=== PATIENT | female | born 1970 | race Caucasian/White ===

== ENCOUNTER 2017-04-21 14:39 | Observation (INO) | payer OTHER ==
[~2017-04-21] VITALS: Ht 167.6 cm; Wt 32.6 kg
[2017-04-21] MEDS ORDERED: GI COCKTAIL PO STA (15:07)
[2017-04-21] MEDS ORDERED: RANITIDINE HCL 50 MG/100 ML D5W IV STA (15:07)
[2017-04-21] MEDS ORDERED: ONDA4TAB46 PO (15:12)
[2017-04-21] MEDS ORDERED: DIAZ-165 PO (15:12)
[2017-04-21] MEDS ORDERED: CMP5 PO (15:12)
[2017-04-21] MEDS ORDERED: PANT40TA PO (15:12)
[2017-04-21] MEDS ORDERED: LEVO25TA5 PO (15:12)
[2017-04-21 15:24] LABS: BASO % 0.2 %; BASO ABS # 0.02 K/uL (0-0.2); EOS % 1.7 %; EOS ABS # 0.14 K/uL (0-0.5); HEMATOCRIT 38.6 % (37-47); HEMOGLOBIN 13.2 g/dL (12.0-16.0); IG# 0.01 K/uL (0.00-0.02); LYMPH % 37.2 %; MEAN CORPUSCULAR HEMOGLOBIN 29.1 pg (25-34); MEAN CORPUSCULAR HGB CONC 34.2 g/dl (32-36); MEAN PLATELET VOLUME 10.6 fL (7.4-10.4); MONO % 6.1 %; MONO ABS # 0.51 K/uL (0.11-0.59); NEUT % 54.7 %; NEUT ABS # 4.56 K/uL (1.4-6.5); PLATELET COUNT 233 K/uL (130-400); RED CELL DISTRIBUTION WIDTH CV 15.9 % (11.5-14.5); RED CELL DISTRIBUTION WIDTH SD 49.6 fL (36.4-46.3); WHITE BLOOD COUNT 8.34 K/uL (4.8-10.8)
--- NOTE | 2017-04-21 15:25 | EMERGENCY ROOM VISIT NOTE ---
History First contact with patient: 14:55 Chief Complaint: CHEST PAIN Stated Complaint: CHEST PAIN Nursing Triage Summary: Has hiatal hernia that causes reflux. Pt ran out of medicine. Has unbearable chset pain. Unable to sleep or eat. History of Present Illness The patient is a 46 year old female who presents to the Emergency Room via private vehicle with complaints of "chest pain". The patient states that she has a history of hiatal hernia that seems to cause acid reflux. She states that since being without this medication the burning in the chest began which she has been dealing with for about 2 weeks now. It has worsened over the past 3-4 days. She notes a sharp pain that is also radiating into her throat and is now affecting her voice and radiates to her back. She has had decreased eating , sleeping, toleration of fluid and food secondary to the sensation. She feels as though her anxiety is increased and she also feels slightly short of breath. There is also nausea but she has been taking Zofran for there has been no vomiting, abdominal pain or diaphoresis. Review of Systems A complete 10-point Review of Systems was discussed with the patient, with pertinent positives and negatives listed in the History of Present Illness. All remaining Review of Systems questions can be considered negative unless otherwise specified. Past Medical/Surgical History Medical Problems: (1) Chest pain Acid Reflux Family History No pertinent. Social History Smoking Status: Never Smoker Current/Historical Medications Scheduled Diazepam (Valium), Unknown Dose PO UD Levothyroxine Sodium (Levothyroxine Sodium), 25 MG PO DAILY Pantoprazole (Protonix), 40 MG PO DAILY Scheduled PRN Ondansetron Hcl (Zofran), 4 MG PO UD PRN for Nausea Prochlorperazine Maleate (Prochlorperazine Maleate), 5 MG PO UD PRN for Nausea Physical Exam Vital Signs Date Time Temp Pulse Resp B/P (MAP) Pulse Ox O2 Delivery O2 Flow Rate FiO2 04/21/17 20:17 76 18 113/86 96 04/21/17 17:57 63 16 116/77 93 Room Air 04/21/17 17:26 64 16 116/80 96 Room Air 04/21/17 15:34 68 20 112/80 04/21/17 15:12 73 04/21/17 15:05 96 Room Air 04/21/17 14:45 36.8 70 17 119/75 96 Room Air Physical Exam VITAL SIGNS - Vital signs and nursing notes were reviewed. Stable. GENERAL - 46-year-old female appearing her stated age who is in no acute distress. Communicates well with provider and answers questions appropriately. SKIN - Without rashes. No petechial rashes. HEAD - NC/AT. EYES - PERRL with EOMI bilaterally. Sclera anicteric. EARS - No deformities of external structures noted on gross examination bilaterally. NOSE - Midline and without cyanosis. No epistaxis or purulent drainage noted. MOUTH/OROPHARYNX - Without perioral cyanosis. Posterior pharynx unremarkable. NECK - Neck with FROM. Supple to palpation. LUNGS - Chest wall symmetric without accessory muscle use, intercostals retractions, or central cyanosis. Normal vesicular breath sounds CTA B/L. No wheezes, rales, or rhonchi appreciated. CARDIAC - RRR with S1/S2. No murmur, rubs, or gallops appreciated. EXTREMITIES - No clubbing or peripheral cyanosis NEUROLOGIC - Cranial nerves II through XII grossly intact PSYCH - A&O, and cooperates fully with examiner. Pt is very pleasant but does appear sad and interacts well with examiner. Medical Decision & Procedures ER Provider Diagnostic Interpretation: CHEST ONE VIEW PORTABLE CLINICAL HISTORY: Chest pain. COMPARISON STUDY: No previous studies for comparison. FINDINGS: Lung volumes are mildly diminished. There is no pneumothorax or pleural effusion. No evidence for pulmonary edema. There is no consolidation. Cardiac size is at the upper limits of normal. Mediastinal contours are unremarkable. IMPRESSION: No acute cardiopulmonary findings. Electronically signed by: Mickey Ch M.D. 04/21/2017 3:30 PM Dictated Date/Time: 04/21/2017 3:29 PM Laboratory Results 04/21/17 15:05 Test 04/21/17 15:05 RDW Standard Deviation 49.6 fL (36.4-46.3) RDW Coefficient of Variation 15.9 % (11.5-14.5) White Blood Count 8.34 K/uL (4.8-10.8) Red Blood Count 4.54 M/uL (4.2-5.4) Hemoglobin 13.2 g/dL (12.0-16.0) Hematocrit 38.6 % (37-47) Mean Corpuscular Volume 85.0 fL (80-100) Mean Corpuscular Hemoglobin 29.1 pg (25-34) Mean Corpuscular Hemoglobin Concent 34.2 g/dl (32-36) Platelet Count 233 K/uL (130-400) Mean Platelet Volume 10.6 fL (7.4-10.4) Neutrophils (%) (Auto) 54.7 % Lymphocytes (%) (Auto) 37.2 % Monocytes (%) (Auto) 6.1 % Eosinophils (%) (Auto) 1.7 % Basophils (%) (Auto) 0.2 % Neutrophils # (Auto) 4.56 K/uL (1.4-6.5) Lymphocytes # (Auto) 3.10 K/uL (1.2-3.4) Monocytes # (Auto) 0.51 K/uL (0.11-0.59) Eosinophils # (Auto) 0.14 K/uL (0-0.5) Basophils # (Auto) 0.02 K/uL (0-0.2) Immature Granulocyte % (Auto) 0.1 % Immature Granulocyte # (Auto) 0.01 K/uL (0.00-0.02) D-Dimer 450 ug/L FEU (0-500) Anion Gap 8.0 mmol/L (3-11) Est Creatinine Clear Calc Drug Dose 75.7 ml/min Estimated GFR () 93.2 Estimated GFR (Non- 80.4 BUN/Creatinine Ratio 13.0 (10-20) Calcium Level 9.3 mg/dl (8.5-10.1) Magnesium Level 2.1 mg/dl (1.8-2.4) Total Bilirubin 0.3 mg/dl (0.2-1) Aspartate Amino Transf (AST/SGOT) 12 U/L (15-37) Alanine Aminotransferase (ALT/SGPT) 17 U/L (12-78) Alkaline Phosphatase 55 U/L (45-117) Total Protein 7.6 gm/dl (6.4-8.2) Albumin 4.1 gm/dl (3.4-5.0) Globulin 3.5 gm/dl (2.5-4.0) Albumin/Globulin Ratio 1.2 (0.9-2) Lipase 168 U/L (73-393) Thyroid Stimulating Hormone (TSH) 1.600 uIu/ml (0.300-4.500) Medications Administered Medications (Trade) Dose Ordered Sig/Lamine Route Start Time Stop Time Status Last Admin Dose Admin Miscellaneous Medication (Gi Cocktail) 24 ml NOW STAT PO 04/21/17 15:07 04/21/17 15:11 DC 04/21/17 15:07 24 ML Ranitidine HCl (zANTac IV) 50 mg NOW STAT IV 04/21/17 15:07 04/21/17 15:11 DC 04/21/17 15:07 50 MG Morphine Sulfate (MoRPHine SULFATE INJ) 4 mg NOW STAT IV 04/21/17 16:04 04/21/17 16:05 DC 04/21/17 16:23 4 MG Ondansetron HCl (Zofran Inj) 4 mg NOW STAT IV 04/21/17 16:04 04/21/17 16:05 DC 04/21/17 16:23 4 MG Hydromorphone HCl (Dilaudid Inj) 0.5 mg NOW STAT IV 04/21/17 17:36 04/21/17 17:37 DC 04/21/17 17:50 0.5 MG Acetaminophen (Tylenol Tab) 650 mg Q4H PRN PO 04/21/17 20:15 05/21/17 20:14 04/22/17 00:32 650 MG Medical Decision Patient was seen and evaluated as above. She presents to us today with chest pain. She appears to be uncomfortable on exam. She is also at times slightly tearful and does appear to be sad. After obtaining a thorough history and physical examination the above work up was performed. Bedside EKG reveals normal sinus rhythm, rate of 63 bpm per my interpretation. Lead II and III do have pre-QRS abnormalities, however repeat EKG was performed and reveals sinus bradycardia, rate of 54 bpm without evidence of any ectopy or ischemic change. I suspect that this is likely her baseline. Troponins negative 2. She was given Zantac, a GI cocktail, morphine, and Dilaudid. There was minimal improvement in her pain. I do suspect that this is likely all from underlying reflux as the patient notes that she did run out of her pantoprazole prescription but does note however she has been trying [id number] things such as Zantac and Tums without relief. Her chest pain is exertional. I do suspect again that this is likely all from esophagitis/irritation caused by the reflux. However, I do believe that given her level of pain, and her exertional chest pain at further evaluation and management in the inpatient setting is warranted. Case was discussed with the attending physician. CBC reveals no concerning leukocytosis or anemia. D-dimer negative. Chemistry panel reveals no evidence of kidney or liver failure. TSH and lipase normal. Case was discussed with the hospitalist team, and will be admitted for further evaluation and management. Please refer to further documentation regarding his stay. In the evaluation and treatment of this patient the following differential diagnoses were entertained: SC, PE, esophagitis, reflux, gastric ulcer, pneumomediastinum, pericarditis, costochondritis, Takotsubo cardiomyopathy, among others. Impression Primary Impression: Chest pain Departure Information Referrals No Doctor, Assigned (PCP) Patient Instructions [facility]
[2017-04-21] MEDS ORDERED: ALUMINUM/MAGNESIUM SUSP 30 ML UDC ONE (15:30)
[2017-04-21] MEDS ORDERED: LIDOCAINE HCL 2% VISC SOLN 20 ML UDC ONE (15:30)
--- NOTE | 2017-04-21 15:31 | DIAGNOSTIC IMAGING REPORT ---
CHEST ONE VIEW PORTABLE CLINICAL HISTORY: Chest pain. COMPARISON STUDY: No previous studies for comparison. FINDINGS: Lung volumes are mildly diminished. There is no pneumothorax or pleural effusion. No evidence for pulmonary edema. There is no consolidation. Cardiac size is at the upper limits of normal. Mediastinal contours are unremarkable. IMPRESSION: No acute cardiopulmonary findings. Electronically signed by: Mickey Ch M.D. 04/21/2017 3:30 PM Dictated Date/Time: 04/21/2017 3:29 PM
[2017-04-21 15:40] LABS: ALBUMIN 4.1 gm/dl (3.4-5.0); ALT/SGPT 17 U/L (12-78); AST/SGOT 12 U/L (15-37); BLOOD UREA NITROGEN 11 mg/dl (7-18); CALCIUM 9.3 mg/dl (8.5-10.1); CARBON DIOXIDE 28 mmol/L (21-32); CREATININE 0.86 mg/dl (0.60-1.20); GLUCOSE 84 mg/dl (70-99); LIPASE 168 U/L (73-393); POTASSIUM 3.9 mmol/L (3.5-5.1); SODIUM 139 mmol/L (136-145)
[2017-04-21 15:51] LABS: ALKALINE PHOSPHATASE 55 U/L (45-117); TOTAL PROTEIN 7.6 gm/dl (6.4-8.2)
[2017-04-21] MEDS ORDERED: MoRPHine SULFATE 4 MG/ML 1 ML CARP\\VIAL IV STA (16:04)
[2017-04-21] MEDS ORDERED: ONDANSETRON INJ 2 MG/ML 2 ML VIAL IV STA (16:04)
[2017-04-21] MEDS ORDERED: HYDROmorphone INJ 0.5 MG/0.5 ML SYR IV STA ×2 (17:36→21:05)
[2017-04-21] MEDS ORDERED: ACETAMINOPHEN 325 MG TAB PO PRN (20:15)
[2017-04-21] MEDS ORDERED: GI COCKTAIL PO PRN (20:15)
--- NOTE | 2017-04-21 20:51 | History and Physical ---
History & Physical Date & Time of Service: Apr 21, 2017 at 19:43 Chief Complaint: Chest Pain Primary Care Physician: Tracie Ch M.D. History of Present Illness Source: patient Ms. Cherry presents for chest pain. It feels like the chest pain from her hiatal hernia but "times a hundred". It has been building for two weeks and is keeping her from sleeping. It starts substernally and radiates up her throat and into her jaw. Moving and deep breaths make it worse with a stabbing pain. She is very nauseas but has been taking zofran which helps. No cough but she did have a cold recently. She has not been able to eat because its so painful, her throat feels swollen with pressure and tightness. When she wakes up in the morning she feels that there is something stuck in her throat and she is somewhat hoarse. She has also had lightheadedness and palpitations Ms. Anaya recently lost her to throat cancer and has been under a lot of stress ROS Constitutional: no chills, aches, sweats or fever Respiratory: no sob,cough, sputum, or wheezing Cardiac: see HPI GI: see HPI, no blood in stools or black tarry stools or hematemesis : no dysuria or hesitancy Extremities: no joint pain or weakness Skin: no rash All other systems reviewed and negative Hx hiatal hernia, goiter on synthroid Family History Father of bone cancer Mother has Parkinsons Social History Smoking Status: Never Smoker Smokeless Tobacco Use: No Alcohol Use: occasionally Drug Use: none Marital Status: Housing status: lives with family Occupational Status: unemployed Immunizations History of Influenza Vaccine: No Allergies Coded Allergies: Penicillins (Unverified Allergy, Unknown, swelling of hands, feet, and legs, 04/21/17) Home Medications Scheduled Diazepam (Valium), Unknown Dose PO UD Levothyroxine Sodium (Levothyroxine Sodium), 25 MG PO DAILY Pantoprazole (Protonix), 40 MG PO DAILY Scheduled PRN Ondansetron Hcl (Zofran), 4 MG PO UD PRN for Nausea Prochlorperazine Maleate (Prochlorperazine Maleate), 5 MG PO UD PRN for Nausea Physical Exam Vital Signs Date Time Temp Pulse Resp B/P (MAP) Pulse Ox O2 Delivery O2 Flow Rate FiO2 04/21/17 17:57 63 16 116/77 93 Room Air 04/21/17 17:26 64 16 116/80 96 Room Air 04/21/17 15:34 68 20 112/80 04/21/17 15:12 73 04/21/17 15:05 96 Room Air 04/21/17 14:45 36.8 70 17 119/75 96 Room Air General: no distress Eyes: normal inspection, PERLL Respiratory: chest non tender, clear to auscultation, normal breath sounds, no respiratory distress, no accessory muscle use Cardiac: regular rate and rhythm, no rub or gallop, no murmur, no edema, no jvd GI/: active bowel sounds, no abd pain or tenderness, soft, non distended Extremities: normal range of motion, normal strength, non tender Neuro/Psych: alert and oriented x 3, normal mood and affect Skin: normal color, dry Diagnostics Laboratory Results Results Past 24 Hours Test 04/21/17 15:05 04/21/17 18:11 Range/Units White Blood Count 8.34 4.8-10.8 K/uL Red Blood Count 4.54 4.2-5.4 M/uL Hemoglobin 13.2 12.0-16.0 g/dL Hematocrit 38.6 37-47 % Mean Corpuscular Volume 85.0 80-100 fL Mean Corpuscular Hemoglobin 29.1 25-34 pg Mean Corpuscular Hemoglobin Concent 34.2 32-36 g/dl Platelet Count 233 130-400 K/uL Mean Platelet Volume 10.6 7.4-10.4 fL Neutrophils (%) (Auto) 54.7 % Lymphocytes (%) (Auto) 37.2 % Monocytes (%) (Auto) 6.1 % Eosinophils (%) (Auto) 1.7 % Basophils (%) (Auto) 0.2 % Neutrophils # (Auto) 4.56 1.4-6.5 K/uL Lymphocytes # (Auto) 3.10 1.2-3.4 K/uL Monocytes # (Auto) 0.51 0.11-0.59 K/uL Eosinophils # (Auto) 0.14 0-0.5 K/uL Basophils # (Auto) 0.02 0-0.2 K/uL RDW Standard Deviation 49.6 36.4-46.3 fL RDW Coefficient of Variation 15.9 11.5-14.5 % Immature Granulocyte % (Auto) 0.1 % Immature Granulocyte # (Auto) 0.01 0.00-0.02 K/uL D-Dimer 450 0-500 ug/L FEU Sodium Level 139 136-145 mmol/L Potassium Level 3.9 3.5-5.1 mmol/L Chloride Level 103 98-107 mmol/L Carbon Dioxide Level 28 21-32 mmol/L Anion Gap 8.0 3-11 mmol/L Blood Urea Nitrogen 11 7-18 mg/dl Creatinine 0.86 0.60-1.20 mg/dl Est Creatinine Clear Calc Drug Dose 75.7 ml/min Estimated GFR () 93.2 Estimated GFR (Non- 80.4 BUN/Creatinine Ratio 13.0 10-20 Random Glucose 84 70-99 mg/dl Calcium Level 9.3 8.5-10.1 mg/dl Magnesium Level 2.1 1.8-2.4 mg/dl Total Bilirubin 0.3 0.2-1 mg/dl Aspartate Amino Transf (AST/SGOT) 12 15-37 U/L Alanine Aminotransferase (ALT/SGPT) 17 12-78 U/L Alkaline Phosphatase 55 45-117 U/L Troponin I < 0.015 < 0.015 0-0.045 ng/ml Total Protein 7.6 6.4-8.2 gm/dl Albumin 4.1 3.4-5.0 gm/dl Globulin 3.5 2.5-4.0 gm/dl Albumin/Globulin Ratio 1.2 0.9-2 Lipase 168 73-393 U/L Thyroid Stimulating Hormone (TSH) 1.600 0.300-4.500 uIu/ml Diagnostic Radiology CHEST ONE VIEW PORTABLE CLINICAL HISTORY: Chest pain. COMPARISON STUDY: No previous studies for comparison. FINDINGS: Lung volumes are mildly diminished. There is no pneumothorax or pleural effusion. No evidence for pulmonary edema. There is no consolidation. Cardiac size is at the upper limits of normal. Mediastinal contours are unremarkable. IMPRESSION: No acute cardiopulmonary findings. EKG Normal sinus rhythm Normal ECG No previous ECGs available Confirmed by DOMENICA PAL ([id number]) on 04/21/2017 4:55:06 PM Impression Assessment and Plan Ms. Cherry is a 46 year old woman here for chest pain Chest pain due to reflux/hiatal hernia - admit tele - Not likely that this is cardiac - trops are negative and EKG shows NSR. Patient's description is more in line with severe acid reflux and she has a long history of hiatal hernia, additionally patient does not have significant risk factors heart disease. Will trend troponins. 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 Discussed with Dahiana Hansen NP and agree with findings and plan as documented in the note. Any exceptions or clarifications are listed here: None patient is here with pleuritic central chest pain previous history of hiatal hernia who ran out of her proton pump inhibitor at home She is increased stressors in her life as her recently within the last 1 year she has some small children she moved from [place] to [facility] to be with her daughter who is grown and has children of her own This patient's pain sounds to be pleuritic or gastrointestinal in nature she says it is bothered by swallowing liquids and solids she has no dysphagia however Vital signs are stable and the patient has a nonacute EKG and lab work Cardiac exam is regular without murmurs lungs are clear without wheezes or crackles abdomen normoactive bowel sounds soft only minorly uncomfortable in the epigastrium Atypical chest pain likely noncardiac in origin my suspicion is this is for stress, her unintentionally stopping her proton pump inhibitor and having reflux will trend her cardiac enzymes and if negative I feel we should pursue a gastrointestinal workup Documented By: Landry Mejia Advanced Directives Existing Advance Directive: No Existing Living Will: No Existing Power of Reclamation Worker: No Existing Health Care Proxy: No Resuscitation Status Full resuscitation VTE Prophylaxis Will order VTE Prophylaxis: Yes
[2017-04-21 20:59] VITALS: O2SAT 97
[2017-04-21] MEDS: PANTOprazole SOD 40 MG TAB PO SCH (21:00)
[2017-04-21 21:40] VITALS: Ht 167.6 cm; Wt 32.6 kg
[2017-04-21] MEDS: KETOROLAC TROMETHAMINE 30 MG/ML VIAL IV PRN (22:08)
[2017-04-21 22:43] VITALS: BP 112/65; PULSE 68; TEMP 37.1; O2SAT 96
[2017-04-22 00:05] VITALS: BP 92/56; PULSE 54; TEMP 36.6; O2SAT 99
[2017-04-22] MEDS: DIAZEPAM 5MG TAB PO SCH ×2 (00:32→08:11)
[2017-04-22] MEDS ORDERED: IV FLUIDS COMPLETED PRN (01:45)
[2017-04-22] MEDS: KETOROLAC TROMETHAMINE 30 MG/ML VIAL IV PRN ×2 (04:21→16:47)
[2017-04-22] MEDS: ALUMINUM/MAGNESIUM SUSP 72 ML, LIDOCAINE HCL 2% VISCOUS SOLN 24 ML, BARCODE IDENTIFIER ... PO PRN ×2 (04:22)
[2017-04-22 04:41] VITALS: BP 128/87; PULSE 77; TEMP 37; O2SAT 93
[2017-04-22] MEDS ORDERED: TRAMADOL HCL 50 MG TAB PO PRN (04:45)
[2017-04-22] MEDS: LEVOTHYROXINE 25 MCG TAB PO SCH (04:52)
[2017-04-22 07:22] VITALS: BP 92/59; PULSE 71; TEMP 37; O2SAT 96
[2017-04-22 07:59] LABS: HEMATOCRIT 39.9 % (37-47); HEMOGLOBIN 13.6 g/dL (12.0-16.0); MEAN CELL VOLUME 85.8 fL (80-100); MEAN CORPUSCULAR HEMOGLOBIN 29.2 pg (25-34); MEAN CORPUSCULAR HGB CONC 34.1 g/dl (32-36); MEAN PLATELET VOLUME 10.5 fL (7.4-10.4); PLATELET COUNT 235 K/uL (130-400); RED CELL DISTRIBUTION WIDTH CV 15.9 % (11.5-14.5); RED CELL DISTRIBUTION WIDTH SD 50.2 fL (36.4-46.3); WHITE BLOOD COUNT 6.04 K/uL (4.8-10.8)
[2017-04-22 08:08] LABS: INR 1.1 (0.9-1.1)
[2017-04-22] MEDS: PANTOprazole SOD 40 MG TAB PO SCH ×2 (08:11→20:05)
[2017-04-22 08:31] LABS: BLOOD UREA NITROGEN 12 mg/dl (7-18); CALCIUM 9.3 mg/dl (8.5-10.1); CARBON DIOXIDE 29 mmol/L (21-32); CREATININE 0.74 mg/dl (0.60-1.20); GLUCOSE 78 mg/dl (70-99); POTASSIUM 4.2 mmol/L (3.5-5.1); SODIUM 140 mmol/L (136-145)
[2017-04-22] MEDS: ENOXAPARIN 40 MG/0.4 ML SYR SC SCH (09:00)
--- NOTE | 2017-04-22 10:01 | Gastrointestinal Consultation ---
Gastrointestinal Consultation Date of Consultation: Apr 22, 2017 Attending Physician: Dr. Mejia Consulting Physician: Dr. Galvan/DAYNE Smith Reason for Consultation: Chest pain History of Present Illness Patient is a 46 year old female with a long standing history of GERD and chronic constipation recently moved to the area from [place] after the loss of her to be close to her oldest daughter. She states for the past two weeks, she has been having chest pains which have been increasing in intensity. For the past three days, symptoms have become severe enough to prompt the patient to seek emergency evaluation. Patient was admitted last evening in this regard. Her associated symptoms include difficulty breathing, difficulty swallowing, loss of appetite and nausea. She states "I can't live like this". States she has been treating her reflux with Pantoprazole and Diazepam prior to hospitalization. Per nursing, she has reported being off her Pantoprazole for the past three weeks. Since admission, she has been requesting only narcotic analgesics for pain control. Describes the pain as "an open wound" with pain radiating across her chest and into her neck. Pain is rated 9/10 at present. She states a GI cocktail did not improve her symptoms. She verbalizes frustration that narcotic analgesics have been discontinued. She remains on Pantoprazole. Risk factors: denies any steroid inhaler use or recent antibiotics. No tobacco or recent alcohol use. Work up on arrival has excluded any acute cardiopulmonary process with a negative CXR, ECG and serial troponins. D Dimer was normal. He remains hemodynamically stable with hemoglobin of 13.6 and hematocrit 39.9. Liver panel and lipase were also normal. Past Medical/Surgical History Medical Problems: (1) Chest wall pain Status: Acute Past Medical History: 1. GERD 2. Hiatus hernia 3. Goiter 4. Chronic constipation Past Surgical History: Prior EGD in [place] Family History Negative for GI malignancy or IBD Social History Smoking Status: Never Smoker Alcohol Use: none Drug Use: none Marital Status: Occupation Status: unemployed Allergies Coded Allergies: Penicillins (Unverified Allergy, Unknown, swelling of hands, feet, and legs, 04/21/17) Current Medications Home Meds and Scripts Medications Dose Route/Sig Max Daily Dose Days Date Category Valium (Diazepam) 5 Mg Tab Unknown Dose PO UD 04/21/17 Reported Protonix (Pantoprazole Sodium) 40 Mg Tab 40 Mg PO DAILY 04/21/17 Reported Prochlorperazine Maleate 5 Mg Tab 5 Mg PO UD PRN 04/21/17 Reported Zofran (Ondansetron HCl) 4 Mg Tab 4 Mg PO UD PRN 04/21/17 Reported Levothyroxine Sodium 25 Mcg Tab 25 Mg PO DAILY 90 04/21/17 Reported Review of Systems Constitutional: + fatigue, No fever, No chills Eyes: No problem reported ENT: + see HPI, No pain on swallowing Respiratory: + see HPI, + cough, + wheezing Cardiac: + see HPI, + palpitations Abdomen: No pain, No vomiting, No diarrhea, No constipation, No GI bleeding Musculoskeletal: No problem reported Female : No problem reported Neuro: No problem reported Psych: + anxiety Physical Exam Date Time Temp Pulse Resp B/P (MAP) Pulse Ox O2 Delivery O2 Flow Rate FiO2 04/22/17 08:20 Room Air 04/22/17 07:22 37.0 71 17 92/59 (70) 96 Room Air 04/22/17 04:41 37.0 77 16 128/87 (101) 93 Room Air 04/22/17 04:00 Room Air 04/22/17 00:30 Room Air 04/22/17 00:05 36.6 54 18 92/56 (68) 99 Room Air 04/21/17 22:43 37.1 68 16 112/65 (81) 96 Room Air 04/21/17 21:40 Room Air 04/21/17 20:59 70 18 121/70 97 04/21/17 20:17 76 18 113/86 96 04/21/17 17:57 63 16 116/77 93 Room Air 04/21/17 17:26 64 16 116/80 96 Room Air 04/21/17 15:34 68 20 112/80 04/21/17 15:12 73 04/21/17 15:05 96 Room Air 04/21/17 14:45 36.8 70 17 119/75 96 Room Air General Appearance: no apparent distress Eyes: EOMI ENT: hearing grossly normal Neck: supple Respiratory/Chest: lungs clear, normal breath sounds, no respiratory distress Cardiovascular: regular rate, rhythm, no gallop, no murmur Abdomen: normal bowel sounds, non tender, soft Extremities: normal inspection, no pedal edema Neurologic/Psych: alert, oriented x 3, + pertinent finding (anxious) Skin: warm/dry Laboratory Results Last 24 Hours Test 04/21/17 15:05 04/21/17 18:11 04/22/17 00:22 04/22/17 07:34 White Blood Count 8.34 K/uL 6.04 K/uL Red Blood Count 4.54 M/uL 4.65 M/uL Hemoglobin 13.2 g/dL 13.6 g/dL Hematocrit 38.6 % 39.9 % Mean Corpuscular Volume 85.0 fL 85.8 fL Mean Corpuscular Hemoglobin 29.1 pg 29.2 pg Mean Corpuscular Hemoglobin Concent 34.2 g/dl 34.1 g/dl Platelet Count 233 K/uL 235 K/uL Mean Platelet Volume 10.6 fL 10.5 fL Neutrophils (%) (Auto) 54.7 % Lymphocytes (%) (Auto) 37.2 % Monocytes (%) (Auto) 6.1 % Eosinophils (%) (Auto) 1.7 % Basophils (%) (Auto) 0.2 % Neutrophils # (Auto) 4.56 K/uL Lymphocytes # (Auto) 3.10 K/uL Monocytes # (Auto) 0.51 K/uL Eosinophils # (Auto) 0.14 K/uL Basophils # (Auto) 0.02 K/uL RDW Standard Deviation 49.6 fL 50.2 fL RDW Coefficient of Variation 15.9 % 15.9 % Immature Granulocyte % (Auto) 0.1 % Immature Granulocyte # (Auto) 0.01 K/uL D-Dimer 450 ug/L FEU Sodium Level 139 mmol/L 140 mmol/L Potassium Level 3.9 mmol/L 4.2 mmol/L Chloride Level 103 mmol/L 104 mmol/L Carbon Dioxide Level 28 mmol/L 29 mmol/L Anion Gap 8.0 mmol/L 7.0 mmol/L Blood Urea Nitrogen 11 mg/dl 12 mg/dl Creatinine 0.86 mg/dl 0.74 mg/dl Est Creatinine Clear Calc Drug Dose 75.7 ml/min 86.3 ml/min Estimated GFR () 93.2 111.8 Estimated GFR (Non- 80.4 96.5 BUN/Creatinine Ratio 13.0 16.6 Random Glucose 84 mg/dl 78 mg/dl Calcium Level 9.3 mg/dl 9.3 mg/dl Magnesium Level 2.1 mg/dl Total Bilirubin 0.3 mg/dl Aspartate Amino Transf (AST/SGOT) 12 U/L Alanine Aminotransferase (ALT/SGPT) 17 U/L Alkaline Phosphatase 55 U/L Troponin I < 0.015 ng/ml < 0.015 ng/ml < 0.015 ng/ml < 0.015 ng/ml Total Protein 7.6 gm/dl Albumin 4.1 gm/dl Globulin 3.5 gm/dl Albumin/Globulin Ratio 1.2 Lipase 168 U/L Thyroid Stimulating Hormone (TSH) 1.600 uIu/ml Prothrombin Time 11.1 SECONDS Prothromb Time International Ratio 1.1 Impression Patient is a 46 year old female with a history of GERD admitted with atypical chest pain and dysphagia. Plan 1. Keep NPO for now. 2. EGD for further evaluation of symptoms. 3. Continue Pantoprazole 40 mg BID. 4. Agree with avoidance of narcotic analgesics for suspected GI symptomatology. 5. Symptoms may be related to anxiety. Could consider psychiatric consultation if no clear etiology to symptoms. Agree with DAYNE Smith as above Abd: Soft, NT, ND, +BS Continue current therapy EGD today
[2017-04-22] MEDS ORDERED: MIDAZOLAM HCL 1 MG/ML 2ML VIAL ONE (10:44)
--- NOTE | 2017-04-22 11:08 | GI REPORT ---
Procedure Date: 04/22/2017 10:45 AM Procedure: Upper GI endoscopy Indications: Chest pain (non cardiac) Medicines: Monitored Anesthesia Care Complications: No immediate complications. Estimated Blood Loss: Estimated blood loss: none. Procedure: Pre-Anesthesia Assessment: - Prior to the procedure, a History and Physical was performed, and patient medications and allergies were reviewed. The patient's tolerance of previous anesthesia was also reviewed. The risks and benefits of the procedure and the sedation options and risks were discussed with the patient. All questions were answered, and informed consent was obtained. Prior Anticoagulants: The patient has taken no previous anticoagulant or antiplatelet agents. ASA Grade Assessment: III - A patient with severe systemic disease. After reviewing the risks and benefits, the patient was deemed in satisfactory condition to undergo the procedure. After obtaining informed consent, the endoscope was passed under direct vision. Throughout the procedure, the patient's blood pressure, pulse, and oxygen saturations were monitored continuously. The scope was introduced through the mouth, and advanced to the second part of duodenum. The upper GI endoscopy was accomplished without difficulty. The patient tolerated the procedure well. Findings: The esophagus was normal. Localized moderate inflammation characterized by erosions and erythema was found in the gastric antrum. Biopsies were taken with a cold forceps for histology. The examined duodenum was normal. Impression: - Normal esophagus. - Gastritis. Biopsied. - Normal examined duodenum. Recommendation: - [facility]. - Advance diet as tolerated. - Continue present medications. Glen Galvan DO 04/22/2017 11:08:30 AM This report has been signed electronically. Note Initiated On: 04/22/2017 10:45 AM I attest to the content of the Intraoperative Record and orders documented therein, exceptions below
[2017-04-22] MEDS ORDERED: LIDOCAINE HCL 2% 2 ML VIAL (20MG/ML) ONE (11:14)
[2017-04-22] MEDS ORDERED: PROPOFOL IV EMULSION 10 MG/ML 20 ML VIAL IV ONE (11:14)
--- NOTE | 2017-04-22 12:13 | Anesthesiology Progress Note ---
Anesthesia Post Op Note Date & Time Apr 22, 2017 at 12:13 Vital Signs Pain Intensity: 4.0 Vital Signs Past 12 Hours Date Time Temp Pulse Resp B/P (MAP) Pulse Ox O2 Delivery O2 Flow Rate FiO2 04/22/17 11:40 69 18 103/74 (84) 99 Room Air 04/22/17 11:25 65 18 106/69 (81) 99 Room Air 04/22/17 11:20 66 18 118/77 (91) 99 Room Air 04/22/17 11:10 36 68 16 89/55 (66) 97 Room Air 04/22/17 10:37 36.6 68 18 114/71 (85) 99 Room Air 04/22/17 08:20 Room Air 04/22/17 07:22 37.0 71 17 92/59 (70) 96 Room Air 04/22/17 04:41 37.0 77 16 128/87 (101) 93 Room Air 04/22/17 04:00 Room Air 04/22/17 00:30 Room Air Notes Mental Status: alert / awake / arousable, participated in evaluation Pt Amnestic to Procedure: Yes Nausea / Vomiting: adequately controlled Pain: adequately controlled Airway Patency, RR, SpO2: stable & adequate BP & HR: stable & adequate Hydration State: stable & adequate Anesthetic Complications: no major complications apparent
--- NOTE | 2017-04-22 12:56 | Hospitalist Progress Note ---
Hospitalist Progress Note Date of Service Apr 22, 2017. Subjective Pt evaluation today including: conversation w/ patient, physical exam, chart review, lab review, review of studies, review of inpatient medication list Patient seen and evaluated. Mild distress as she is very tearful. States he pain was unbearable last night and is just hoping to get this under control. She denies using any pain medications as an outpatient. She did run out of her PPI and hasn't been using this. Her pain is all mid-chest and burning. Does have a sharp quality as well that is reproducible with palpation along the R lateral wall of the sternum around Rib 3-4. She does report the that valium does help some of her symptoms but makes her groggy "can't function". Discussed the stressors in her life and she does report anxiety/depression. Discussed SSRIs but she says that she would only do this as a "last resort" as she is afraid she would not be able to function and take care of her kids if starting these medications. EGD reveals gastritis and will add LAMINE carafate for symptom relief. Will leave low dose Morphine on board for severe pain and will limit this given risk of constipation that could make symptoms worse. Constitutional: No fever, No chills Respiratory: No cough, No shortness of breath Cardiovascular: + chest pain, No orthopnea, No palpitations Abdomen: + nausea, No pain, No vomiting, No diarrhea, No constipation, No GI bleeding Musculoskeletal: No swelling, No calf pain Female : No dysuria Heme: No abnormal bleeding/bruising Skin: No rash Medications Current Inpatient Medications Medications (Trade) Dose Ordered Sig/Lamine Route Start Time Stop Time Status Last Admin Dose Admin Enoxaparin Sodium (Lovenox Inj) 40 mg Q24H SC 04/22/17 09:00 05/22/17 08:59 Acetaminophen (Tylenol Tab) 650 mg Q4H PRN PO 04/21/17 20:15 05/21/17 20:14 04/22/17 00:32 650 MG Ondansetron HCl (Zofran Inj) 4 mg Q6H PRN IV 04/21/17 20:15 05/21/17 20:14 Diazepam (Valium Tab) 5 mg BID PO 04/21/17 21:00 05/21/17 20:59 04/22/17 08:11 5 MG Levothyroxine Sodium (Synthroid Tab) 25 mcg DAILYBB PO 04/22/17 06:30 05/22/17 06:29 04/22/17 04:52 25 MCG Pantoprazole Sodium (Protonix Tab) 40 mg BID PO 04/21/17 21:00 05/21/17 20:59 04/22/17 08:11 40 MG Ketorolac Tromethamine (Toradol Inj) 30 mg Q6H PRN IV 04/21/17 20:45 04/26/17 20:44 04/22/17 04:21 30 MG Al Hydroxide/Mg Hydroxide/ Lidocaine HCl/ Barcode Q4H PRN PO 04/21/17 23:00 05/21/17 22:59 04/22/17 04:22 24 ML Miscellaneous (Iv Fluids Completed) 1 ea PRN PRN N/A 04/22/17 01:45 04/22/18 01:44 Tramadol HCl (Ultram Tab) 50 mg Q4H PRN PO 04/22/17 10:30 04/22/18 12:00 04/22/17 13:02 50 MG Morphine Sulfate (MoRPHine SULFATE INJ) 2 mg Q6H PRN IV 04/22/17 10:30 05/06/17 10:29 Sucralfate (Carafate Susp) 1 gm QID PO 04/22/17 13:00 05/22/17 12:59 Objective Vital Signs Date Time Temp Pulse Resp B/P (MAP) Pulse Ox O2 Delivery O2 Flow Rate FiO2 04/22/17 11:40 69 18 103/74 (84) 99 Room Air 04/22/17 11:25 65 18 106/69 (81) 99 Room Air 04/22/17 11:20 66 18 118/77 (91) 99 Room Air 04/22/17 11:10 36 68 16 89/55 (66) 97 Room Air 04/22/17 10:37 36.6 68 18 114/71 (85) 99 Room Air 04/22/17 08:20 Room Air 04/22/17 07:22 37.0 71 17 92/59 (70) 96 Room Air 04/22/17 04:41 37.0 77 16 128/87 (101) 93 Room Air 04/22/17 04:00 Room Air 04/22/17 00:30 Room Air 04/22/17 00:05 36.6 54 18 92/56 (68) 99 Room Air 04/21/17 22:43 37.1 68 16 112/65 (81) 96 Room Air 04/21/17 21:40 Room Air 04/21/17 20:59 70 18 121/70 97 04/21/17 20:17 76 18 113/86 96 04/21/17 17:57 63 16 116/77 93 Room Air 04/21/17 17:26 64 16 116/80 96 Room Air 04/21/17 15:34 68 20 112/80 04/21/17 15:12 73 04/21/17 15:05 96 Room Air 04/21/17 14:45 36.8 70 17 119/75 96 Room Air Physical Exam General Appearance: WD/WN, + mild distress (tearful) Eyes: sclerae normal ENT: hearing grossly normal Neck: supple, no JVD, trachea midline Respiratory/Chest: lungs clear, normal breath sounds, no respiratory distress, no accessory muscle use, + pertinent finding (chest wall tenderness to palpation along L lateral board of sternum at level of 3-4th rib) Cardiovascular: regular rate, rhythm, no gallop, no murmur Abdomen: normal bowel sounds, non tender, soft Extremities: no pedal edema Neurologic/Psychiatric: alert, + pertinent finding (flat affect) Skin: normal color Laboratory Results Last 24 Hours Test 04/21/17 15:05 04/21/17 18:11 04/22/17 00:22 04/22/17 07:34 White Blood Count 8.34 K/uL 6.04 K/uL Red Blood Count 4.54 M/uL 4.65 M/uL Hemoglobin 13.2 g/dL 13.6 g/dL Hematocrit 38.6 % 39.9 % Mean Corpuscular Volume 85.0 fL 85.8 fL Mean Corpuscular Hemoglobin 29.1 pg 29.2 pg Mean Corpuscular Hemoglobin Concent 34.2 g/dl 34.1 g/dl Platelet Count 233 K/uL 235 K/uL Mean Platelet Volume 10.6 fL 10.5 fL Neutrophils (%) (Auto) 54.7 % Lymphocytes (%) (Auto) 37.2 % Monocytes (%) (Auto) 6.1 % Eosinophils (%) (Auto) 1.7 % Basophils (%) (Auto) 0.2 % Neutrophils # (Auto) 4.56 K/uL Lymphocytes # (Auto) 3.10 K/uL Monocytes # (Auto) 0.51 K/uL Eosinophils # (Auto) 0.14 K/uL Basophils # (Auto) 0.02 K/uL RDW Standard Deviation 49.6 fL 50.2 fL RDW Coefficient of Variation 15.9 % 15.9 % Immature Granulocyte % (Auto) 0.1 % Immature Granulocyte # (Auto) 0.01 K/uL D-Dimer 450 ug/L FEU Sodium Level 139 mmol/L 140 mmol/L Potassium Level 3.9 mmol/L 4.2 mmol/L Chloride Level 103 mmol/L 104 mmol/L Carbon Dioxide Level 28 mmol/L 29 mmol/L Anion Gap 8.0 mmol/L 7.0 mmol/L Blood Urea Nitrogen 11 mg/dl 12 mg/dl Creatinine 0.86 mg/dl 0.74 mg/dl Est Creatinine Clear Calc Drug Dose 75.7 ml/min 86.3 ml/min Estimated GFR () 93.2 111.8 Estimated GFR (Non- 80.4 96.5 BUN/Creatinine Ratio 13.0 16.6 Random Glucose 84 mg/dl 78 mg/dl Calcium Level 9.3 mg/dl 9.3 mg/dl Magnesium Level 2.1 mg/dl Total Bilirubin 0.3 mg/dl Aspartate Amino Transf (AST/SGOT) 12 U/L Alanine Aminotransferase (ALT/SGPT) 17 U/L Alkaline Phosphatase 55 U/L Troponin I < 0.015 ng/ml < 0.015 ng/ml < 0.015 ng/ml < 0.015 ng/ml Total Protein 7.6 gm/dl Albumin 4.1 gm/dl Globulin 3.5 gm/dl Albumin/Globulin Ratio 1.2 Lipase 168 U/L Thyroid Stimulating Hormone (TSH) 1.600 uIu/ml Prothrombin Time 11.1 SECONDS Prothromb Time International Ratio 1.1 Assessment and Plan Ms. Cherry is a 46 year old woman here for chest pain Gastritis: - Continues with reproducible sharp CP and burning pain - EGD reveals gastritis with bx obtained - Troponins negative and telemetry unremarkable - no further cardiac work-up necessary - Will add Carafate LAMINE and recommend to use this routinely to help coat the stomach lining - Can use morphine PRN for pain Depression/Anxiety: - Some stress response is likely contributing as she c/o headache, neck/back tension, reproducible CP and is still acutely dealing with loss but may benefit from control of anxiety/depression and outpatient therapy - Status she utilizes Valium but does cause some drowsiness - Discussed SSRIs but patient would like to do this as "last resort" and can be deferred to outpatient Disposition: - Appropriate for medical floor Continued [facility] stay due to: inadequate po fluid intake, inadequate oral pain control Discharge planning: home
[2017-04-22] MEDS: TRAMADOL HCL 50 MG TAB PO PRN (13:02)
[2017-04-22] MEDS: SUCRALFATE 1 GM/10 ML UDC PO SCH ×3 (13:44→20:05)
[2017-04-22] MEDS: MoRPHine SULFATE 2 MG/ML CARP IV PRN ×2 (13:50→20:05)
[2017-04-22 15:04] VITALS: BP 96/60; PULSE 69; TEMP 36.9; O2SAT 95
[2017-04-22 19:45] VITALS: BP 89/58; PULSE 68; TEMP 36.6; O2SAT 96
[2017-04-22 23:42] VITALS: BP 93/62; PULSE 62; TEMP 36.4; O2SAT 96
[2017-04-23] MEDS: DIAZEPAM 5MG TAB PO PRN ×3 (02:25→20:43)
[2017-04-23] MEDS: MoRPHine SULFATE 2 MG/ML CARP IV PRN ×4 (02:26→23:09)
[2017-04-23] MEDS: ONDANSETRON INJ 2 MG/ML 2 ML VIAL IV PRN ×3 (02:26→23:17)
[2017-04-23] MEDS: KETOROLAC TROMETHAMINE 30 MG/ML VIAL IV PRN ×2 (05:27→14:07)
[2017-04-23] MEDS: LEVOTHYROXINE 25 MCG TAB PO SCH (05:29)
[2017-04-23 06:44] LABS: HEMATOCRIT 38.2 % (37-47); HEMOGLOBIN 12.5 g/dL (12.0-16.0); MEAN CELL VOLUME 86.4 fL (80-100); MEAN CORPUSCULAR HEMOGLOBIN 28.3 pg (25-34); MEAN CORPUSCULAR HGB CONC 32.7 g/dl (32-36); MEAN PLATELET VOLUME 10.3 fL (7.4-10.4); PLATELET COUNT 217 K/uL (130-400); RED CELL DISTRIBUTION WIDTH CV 15.7 % (11.5-14.5); RED CELL DISTRIBUTION WIDTH SD 49.9 fL (36.4-46.3); WHITE BLOOD COUNT 4.76 K/uL (4.8-10.8)
[2017-04-23 07:17] LABS: CALCIUM 8.7 mg/dl (8.5-10.1); CREATININE 0.75 mg/dl (0.60-1.20); POTASSIUM 4.2 mmol/L (3.5-5.1)
[2017-04-23] MEDS: SUCRALFATE 1 GM/10 ML UDC PO SCH ×4 (08:13→20:40)
[2017-04-23] MEDS: PANTOprazole SOD 40 MG TAB PO SCH ×2 (08:13→20:40)
[2017-04-23] MEDS: ENOXAPARIN 40 MG/0.4 ML SYR SC SCH (08:14)
[2017-04-23 08:18] VITALS: BP 93/66; PULSE 65; TEMP 36.7; O2SAT 99
[2017-04-23 11:57] VITALS: BP 101/62; PULSE 76; TEMP 36.8; O2SAT 97
[2017-04-23] MEDS: TRAMADOL HCL 50 MG TAB PO PRN ×2 (12:54→17:53)
[2017-04-23 15:26] VITALS: BP 95/62; PULSE 65; TEMP 36.6; O2SAT 95
[2017-04-23] MEDS: ALUMINUM/MAGNESIUM SUSP 72 ML, LIDOCAINE HCL 2% VISCOUS SOLN 24 ML, BARCODE IDENTIFIER ... PO PRN ×2 (17:54)
[2017-04-23 19:18] VITALS: BP 98/64; PULSE 59; TEMP 36.8; O2SAT 95
--- NOTE | 2017-04-23 23:04 | Progress Note ---
Subjective Date of Service: Apr 23, 2017. Subjective Pt evaluation today including: conversation w/ patient, physical exam, chart review, lab review, review of studies, review of inpatient medication list Voiding: no voiding problems, no incontinence Still patient is c/o reproducible sharp CP and epigastric burning pain. Pt denies nausea, vomiting and diarrhea. Problem List Medical Problems: (1) Chest wall pain Status: Acute Review of Systems Constitutional: No fever, No chills Respiratory: No cough, No shortness of breath Cardiovascular: + chest pain, No orthopnea, No palpitations Abdomen: + nausea, No pain, No vomiting, No diarrhea, No constipation, No GI bleeding Musculoskeletal: No swelling, No calf pain Female : No dysuria Heme: No abnormal bleeding/bruising Skin: No rash Objective Vital Signs Date Time Temp Pulse Resp B/P (MAP) Pulse Ox O2 Delivery O2 Flow Rate FiO2 04/23/17 19:18 36.8 59 17 98/64 (75) 95 Room Air 04/23/17 16:00 Room Air 04/23/17 15:26 36.6 65 16 95/62 (73) 95 Room Air 04/23/17 11:57 36.8 76 16 101/62 (75) 97 Room Air 04/23/17 08:18 36.7 65 18 93/66 (75) 99 Room Air 04/23/17 08:00 Room Air 04/23/17 00:00 Room Air 04/22/17 23:42 36.4 62 16 93/62 (72) 96 Room Air Physical Exam Comments: General Appearance: WD/WN, + mild distress (tearful) Eyes: sclerae normal ENT: hearing grossly normal Neck: supple, no JVD, trachea midline Respiratory/Chest: lungs clear, normal breath sounds, no respiratory distress, no accessory muscle use, + pertinent finding (chest wall tenderness to palpation along L lateral board of sternum at level of 3-4th rib) Cardiovascular: regular rate, rhythm, no gallop, no murmur Abdomen: normal bowel sounds, non tender, soft Extremities: no pedal edema Neurologic/Psychiatric: alert, + pertinent finding (flat affect) Skin: normal color Laboratory Results Last 24 Hours Test 04/23/17 06:23 White Blood Count 4.76 K/uL Red Blood Count 4.42 M/uL Hemoglobin 12.5 g/dL Hematocrit 38.2 % Mean Corpuscular Volume 86.4 fL Mean Corpuscular Hemoglobin 28.3 pg Mean Corpuscular Hemoglobin Concent 32.7 g/dl RDW Standard Deviation 49.9 fL RDW Coefficient of Variation 15.7 % Platelet Count 217 K/uL Mean Platelet Volume 10.3 fL Sodium Level 138 mmol/L Potassium Level 4.2 mmol/L Chloride Level 105 mmol/L Carbon Dioxide Level 28 mmol/L Anion Gap 5.0 mmol/L Blood Urea Nitrogen 21 mg/dl Creatinine 0.75 mg/dl Est Creatinine Clear Calc Drug Dose 47.7 ml/min Estimated GFR () 110.0 Estimated GFR (Non- 94.9 BUN/Creatinine Ratio 28.8 Random Glucose 79 mg/dl Calcium Level 8.7 mg/dl Assessment and Plan Ms. Cherry is a 46 year old woman here for chest pain Gastritis: - Continues with reproducible sharp CP and burning pain - EGD reveals gastritis with bx obtained - Troponin's negative and telemetry unremarkable - no further cardiac work-up necessary - s/p EGD appreciated GI recommendation- continue Carafate and PPi's. - Can use morphine PRN for pain Depression/Anxiety: - Some stress response is likely contributing as she c/o headache, neck/back tension, reproducible CP and is still acutely dealing with loss but may benefit from control of anxiety/depression and outpatient therapy - Status she utilizes Valium but does cause some drowsiness - Discussed SSRIs but patient would like to do this as "last resort" and can be deferred to outpatient Possible Discharge in 1 -2 days.. Continued [facility] stay due to: inadequate po fluid intake, inadequate oral pain control Discharge planning: home
[2017-04-23 23:44] VITALS: BP 102/70; PULSE 56; TEMP 36.4; O2SAT 97
[2017-04-24] VITALS (7 sets, daily range): BP systolic 83–107; BP diastolic 52–70; PULSE 54–64; TEMP 36.3–36.7; O2SAT 91–98
[2017-04-24] MEDS: TRAMADOL HCL 50 MG TAB PO PRN ×3 (04:21→16:43)
[2017-04-24] MEDS: LEVOTHYROXINE 25 MCG TAB PO SCH (04:21)
[2017-04-24] MEDS: DIAZEPAM 5MG TAB PO PRN ×3 (05:46→19:17)
[2017-04-24] MEDS: KETOROLAC TROMETHAMINE 30 MG/ML VIAL IV PRN ×3 (05:47→19:18)
[2017-04-24] MEDS: MoRPHine SULFATE 2 MG/ML CARP IV PRN ×2 (06:39→13:52)
[2017-04-24 07:10] LABS: HEMOGLOBIN 12.3 g/dL (12.0-16.0); MEAN CELL VOLUME 85.6 fL (80-100); MEAN CORPUSCULAR HEMOGLOBIN 28.5 pg (25-34); MEAN CORPUSCULAR HGB CONC 33.2 g/dl (32-36); MEAN PLATELET VOLUME 10.1 fL (7.4-10.4); PLATELET COUNT 229 K/uL (130-400); RED CELL DISTRIBUTION WIDTH CV 15.6 % (11.5-14.5); WHITE BLOOD COUNT 5.34 K/uL (4.8-10.8)
[2017-04-24] MEDS: SUCRALFATE 1 GM/10 ML UDC PO SCH ×4 (07:14→20:41)
[2017-04-24] MEDS: PANTOprazole SOD 40 MG TAB PO SCH ×2 (07:14→20:41)
[2017-04-24] MEDS: ENOXAPARIN 40 MG/0.4 ML SYR SC SCH (07:15)
[2017-04-24 07:27] LABS: CALCIUM 8.8 mg/dl (8.5-10.1); CREATININE 0.77 mg/dl (0.60-1.20); POTASSIUM 4.1 mmol/L (3.5-5.1)
[2017-04-24] MEDS: ALUMINUM/MAGNESIUM SUSP 72 ML, LIDOCAINE HCL 2% VISCOUS SOLN 24 ML, BARCODE IDENTIFIER ... PO PRN ×2 (09:06)
--- NOTE | 2017-04-24 11:17 | Progress Note ---
Subjective Date of Service: Apr 24, 2017. Subjective Pt evaluation today including: conversation w/ patient, physical exam, chart review, review of inpatient medication list Pain: 5-6 PO Intake: good Voiding: no incontinence pt is c/o of 5-6/10 epigastric pain, tenderness in sternum area, heart burn, nausea, vomiting but no diarrhea. Pt denies sob, dizziness, palpitation and loss of consciousness. Problem List Medical Problems: (1) Chest wall pain Status: Acute Review of Systems Constitutional: No fever, No chills Respiratory: No cough, No sputum Cardiac: No chest pain, No edema Abdomen: + pain, + problem reported (epigastric area.) Heme: No abnormal bleeding/bruising Endo: No fatigue Skin: No rash Objective Vital Signs Date Time Temp Pulse Resp B/P (MAP) Pulse Ox O2 Delivery O2 Flow Rate FiO2 04/24/17 08:00 Room Air 04/24/17 07:15 36.3 54 16 107/70 (82) 98 Room Air 04/24/17 00:00 Room Air 04/23/17 23:44 36.4 56 16 102/70 (81) 97 Room Air 04/23/17 19:18 36.8 59 17 98/64 (75) 95 Room Air 04/23/17 16:00 Room Air 04/23/17 15:26 36.6 65 16 95/62 (73) 95 Room Air 04/23/17 11:57 36.8 76 16 101/62 (75) 97 Room Air Physical Exam General Appearance: WD/WN, no apparent distress Eyes: EOMI Neck: supple Respiratory/Chest: lungs clear, no respiratory distress, + pertinent finding ( tenderness on palpition in sternum ) Cardiovascular: regular rate, rhythm, no edema Abdomen: normal bowel sounds, soft Extremities: normal range of motion, non-tender Neurologic/Psychiatric: no motor/sensory deficits, alert, oriented x 3 Skin: no rash Laboratory Results Last 24 Hours Test 04/24/17 06:00 White Blood Count 5.34 K/uL Red Blood Count 4.32 M/uL Hemoglobin 12.3 g/dL Hematocrit 37.0 % Mean Corpuscular Volume 85.6 fL Mean Corpuscular Hemoglobin 28.5 pg Mean Corpuscular Hemoglobin Concent 33.2 g/dl RDW Standard Deviation 49.0 fL RDW Coefficient of Variation 15.6 % Platelet Count 229 K/uL Mean Platelet Volume 10.1 fL Sodium Level 139 mmol/L Potassium Level 4.1 mmol/L Chloride Level 104 mmol/L Carbon Dioxide Level 29 mmol/L Anion Gap 5.0 mmol/L Blood Urea Nitrogen 19 mg/dl Creatinine 0.77 mg/dl Est Creatinine Clear Calc Drug Dose 46.5 ml/min Estimated GFR () 106.6 Estimated GFR (Non- 91.9 BUN/Creatinine Ratio 24.3 Random Glucose 74 mg/dl Calcium Level 8.8 mg/dl Assessment and Plan Ms. Cherry is a 46 year old woman here for chest pain Gastritis: - Continues with reproducible sharp epigastric burning chest pain - EGD reveals gastritis with bx obtained - Troponin's negative and telemetry unremarkable - no further cardiac work-up necessary - s/p EGD appreciated GI recommendation- continue Carafate and PPi's. - Can use morphine PRN for pain Depression/Anxiety: - Some stress response is likely contributing as she c/o headache, neck/back tension, reproducible CP and is still acutely dealing with loss but may benefit from control of anxiety/depression and outpatient therapy - Status she utilizes Valium but does cause some drowsiness - Discussed SSRIs but patient would like to do this as "last resort" and can be deferred to outpatient Possible Discharge in 1 -2 days. patient pain is still not well controlled. Continued [facility] stay due to: inadequate po fluid intake, inadequate oral pain control Discharge planning: home
[2017-04-24] MEDS ORDERED: NURSING VERBAL MED ORDER ONE (16:00)
[2017-04-24] MEDS ORDERED: POLYETHYLENE (MIRALAX) 17 GM PACK PO ONE (16:00)
[2017-04-25] MEDS: MoRPHine SULFATE 2 MG/ML CARP IV PRN (01:22)
[2017-04-25 04:32] VITALS: BP 93/62; PULSE 54; TEMP 36.9; O2SAT 97
[2017-04-25] MEDS: LEVOTHYROXINE 25 MCG TAB PO SCH (06:10)
[2017-04-25] MEDS: KETOROLAC TROMETHAMINE 30 MG/ML VIAL IV PRN (06:11)
[2017-04-25 07:07] LABS: HEMATOCRIT 38.2 % (37-47); HEMOGLOBIN 12.6 g/dL (12.0-16.0); MEAN CELL VOLUME 85.7 fL (80-100); MEAN CORPUSCULAR HEMOGLOBIN 28.3 pg (25-34); MEAN PLATELET VOLUME 10.3 fL (7.4-10.4); PLATELET COUNT 223 K/uL (130-400); RED CELL DISTRIBUTION WIDTH CV 15.5 % (11.5-14.5); RED CELL DISTRIBUTION WIDTH SD 48.9 fL (36.4-46.3); WHITE BLOOD COUNT 5.55 K/uL (4.8-10.8)
[2017-04-25] MEDS: PANTOprazole SOD 40 MG TAB PO SCH (07:18)
[2017-04-25] MEDS: TRAMADOL HCL 50 MG TAB PO PRN ×2 (07:19→11:19)
[2017-04-25] MEDS: SUCRALFATE 1 GM/10 ML UDC PO SCH ×2 (07:19→11:10)
[2017-04-25 07:23] LABS: CALCIUM 8.8 mg/dl (8.5-10.1); CREATININE 0.77 mg/dl (0.60-1.20); POTASSIUM 4.1 mmol/L (3.5-5.1)
[2017-04-25 08:12] VITALS: BP 112/70; PULSE 64; TEMP 36.7; O2SAT 94
[2017-04-25] MEDS ORDERED: POLYETHYLENE (MIRALAX) 17 GM PACK PO PRN (09:15)
[2017-04-25] MEDS: ENOXAPARIN 40 MG/0.4 ML SYR SC SCH (10:12)
[2017-04-25] MEDS ORDERED: CRFUDL PO (10:33)
[2017-04-25] MEDS ORDERED: PANT40TA PO (10:33)
[2017-04-25] MEDS ORDERED: ULT50X PO (10:33)
--- NOTE | 2017-04-25 10:38 | Discharge Instructions ---
Discharge Instructions Date of Service Apr 25, 2017. Admission Reason for Admission: Chest Pain Discharge Discharge Diagnosis / Problem: Epigastric pain, gastritis, chest pain Discharge Goals Goal(s): Decrease discomfort, Improve function Activity Recommendations Activity Limitations: per Instructions/Follow-up section Driving or Machine Use: no driving after taking Ultram . Instructions / Follow-Up Instructions / Follow-Up Medications: - CARAFATE: take 4 times a day for 10 more days, this is to coat the stomach and allow gastritis to heal - PROTONIX: increased from once a day to twice a day, continue this for 6-8 weeks to treat the gastritis, then resume once a day - ULTRAM: take as needed for pain Epigastric / chest pain: found to be due to gastritis based on EGD findings, biopsies taken, results still pending Dr. Galvan's office should call with biopsy results EKG normal and heart enzymes normal, no evidence of cardiac ischemia as cause of the pain FOLLOW UP - Dr. Ch in one week, call office to schedule a hospital follow up appointment Current Hospital Diet Patient's current hospital diet: Regular Diet Discharge Diet Recommended Diet: Regular Diet Procedures Procedures Performed: EGD with bx Pending Studies Studies pending at discharge: yes List of pending studies: stomach biopsy results Medical Emergencies . Who to Call and When: Medical Emergencies: If at any time you feel your situation is an emergency, please call 911 immediately. . Non-Emergent Contact Non-Emergency issues call your: Primary Care Provider Call Non-Emergent contact if: your pain is worsening, you have any medication questions . . "Provider Documentation" section prepared by Gerry Alatorre. . [place] Drug Monitoring Program Search Results: no issues identified
[2017-04-25 10:46] VITALS: BP 112/70; PULSE 64; TEMP 36.7; O2SAT 94
--- NOTE | 2017-04-25 14:22 | Discharge Summary ---
Discharge Summary Date of Service Apr 25, 2017. Discharge Summary Admission Date: Apr 21, 2017 at 20:18 Discharge Date: Apr 25, 2017 Discharge Disposition: Home Principal Diagnosis: GERD, gastritis Problems/Secondary Diagnoses: Depression/Anxiety chest pain Immunizations: Have You Had Influenza Vaccine: No Procedures: EGD - gastritis, biopsies taken Consultations: Gastroenterology Medication Reconciliation New Medications: Sucralfate (Sucralfate) 1 Gm/10 Ml Susp 1 GM PO QID for 10 Days, #400 ML 0 Refills Tramadol HCl (Tramadol HCl) 50 Mg Tab 50 MG PO Q4H PRN for Pain, #20 TAB 0 Refills Changed Medications: Pantoprazole (Protonix) 40 Mg Tab 40 MG PO BID, #60 TAB 1 Refill (Changed from: DAILY; 30; Refills: ) Continued Medications: Diazepam (Valium) 5 Mg Tab Unknown Dose PO UD, TAB Levothyroxine Sodium (Levothyroxine Sodium) 25 Mcg Tab 25 MG PO DAILY for 90 Days, TAB 3 Refills Ondansetron Hcl (Zofran) 4 Mg Tab 4 MG PO UD PRN for Nausea, TAB Prochlorperazine Maleate (Prochlorperazine Maleate) 5 Mg Tab 5 MG PO UD PRN for Nausea Discharge Exam Patient still with pain in upper chest. Pain was better last night after she decided to not eat. Hungry this AM, ate breakfast, pain returned. Compliant with carafate and Protonix. She would like to go home, pain is mild to moderate , wants to get rest at home. Review of Systems: Constitutional: No fever, No chills, No sweats, No weight loss, No weakness , No fatigue, No problem reported Eyes: No worsening of vision, No eye pain, No redness, No discharge, No diplopia, No problem reported ENT: No hearing loss, No unusual epistaxis, No nasal symptoms, No sore throat, No tinnitus, No dental problems, No trouble swallowing, No problem reported Respiratory: No cough, No sputum, No wheezing, No shortness of breath, No dyspnea on exertion, No dyspnea at rest, No hemoptysis, No problem reported Cardiovascular: + chest pain (upper chest, radiates right side), No orthopnea, No PND, No edema, No claudication, No palpitations, No problem reported Abdomen: + problem reported (reflux symptoms), No pain, No nausea, No vomiting, No diarrhea, No constipation, No GI bleeding Musculoskeletal: No joint pain, No muscle pain, No swelling, No calf pain, No problem reported Genitourinary - Female: No dysuria, No urinary frequency, No urinary urgency , No urinary incontinence, No urinary retention, No hematuria Neurologic: No memory loss, No paralysis, No weakness, No numbness/tingling , No vertigo, No balance problems, No problem reported Psychiatric: No depression symptoms, No anhedonism, No anxiety, No insomnia , No substance abuse, No problem reported Endocrine: No fatigue, No excessive thirst, No excessive urination, No problem reported Hematologic / Lymphatic: No abnormal bleeding/bruising, No clotting problems , No swollen lymph nodes, No night sweats, No problem reported Integumentary: No rash, No itch, No new/changing skin lesions, No color change, No bleeding, No problem reported Physical Exam: General Appearance: WD/WN, no apparent distress Eyes: normal inspection, EOMI, sclerae normal ENT: normal ENT inspection, hearing grossly normal, pharynx normal Neck: supple, no adenopathy, no JVD, trachea midline Respiratory/Chest: chest non-tender, lungs clear, normal breath sounds, no respiratory distress, no accessory muscle use Cardiovascular: regular rate, rhythm, no edema, no gallop, no JVD, no murmur , normal peripheral pulses Abdomen / GI: normal bowel sounds, non tender, soft, no organomegaly Extremities: normal inspection, no calf tenderness, normal capillary refill , no pedal edema, normal range of motion, pelvis stable 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 Cherry is a 46 year old woman here for chest pain Gastritis and GERD causing chest pain, right sided - will treat with Carafate QID for 10 days total, Protonix BID (increased from daily) - patient aware of good practices of not eating late, avoiding trigger foods, sleeping with HOB elevated - Continues with reproducible sharp epigastric burning chest pain - EGD revealed gastritis biopsies taken, results still pending, Dr. Galvan's office will call with results - Troponin's negative and telemetry unremarkable - no further cardiac work-up necessary Depression/Anxiety: - Some stress response is likely contributing as she c/o headache, neck/back tension, reproducible CP and is still acutely dealing with loss but may benefit from control of anxiety/depression and outpatient therapy - Status she utilizes Valium but does cause some drowsiness - Discussed SSRIs but patient would like to do this as "last resort" and can be deferred to outpatient, she will d/w PCP D/c to home today Total Time Spent: Greater than 30 minutes This includes examination of the patient, discharge planning, medication reconciliation, and communication with other providers. Discharge Instructions Please refer to the electronic Patient Visit Report (Discharge Instructions) for additional information. Follow-Up Dr. Ch in one week Additional Copies To Tracie Ch M.D.
== END 2017-04-25 12:15 | disposition home or self-care (01) ==
LOC: C.EDB 14:41 → C.MED 20:18 → ENRESERV 20:35
PROVIDERS: ADMIT Internal Medicine; ATTEND Internal Medicine
DX: K21.9 Gastro-esophageal reflux disease without esophagitis (principal); K29.70 Gastritis, unspecified, without bleeding; R07.9 Chest pain, unspecified; F41.9 Anxiety disorder, unspecified; K44.9 Diaphragmatic hernia without obstruction or gangrene; F32.9 Major depressive disorder, single episode, unspecified; E03.9 Hypothyroidism, unspecified; Z82.0 Family history of epilepsy and other diseases of the nervous system; Z80.8 Family history of malignant neoplasm of other organs or systems; Z88.0 Allergy status to penicillin; Z87.442 Personal history of urinary calculi